=== PATIENT | male | born 1990 | race Hispanic/Latino ===

== ENCOUNTER 2022-10-04 15:52 | Emergency (ER) | payer OTHER ==
[2022-10-04] MEDS ORDERED: ACETAMINOPHEN 500 MG TAB ONE (16:14)
[2022-10-04] MEDS ORDERED: HYDROCODONE/APAP 7.5/325 MG TAB ONE (16:15)
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
[2022-10-04] MEDS ORDERED: LIDOCAINE 1% MPF 5 ML VIAL ONE (17:02)
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
[2022-10-04 19:35] VITALS: TEMP 98.2
[2022-10-04 19:37] VITALS: BP 131/59; O2SAT 100
== END 2022-10-04 19:28 | disposition home or self-care (01) ==
LOC: ER 15:52
PROC: 0JQ10ZZ Repair Face Subcutaneous Tissue and Fascia, Open Approach (ICD-10-PCS; principal; 2022-10-04)
DX: S01.81XA Laceration without foreign body of other part of head, initial encounter (principal); Y04.2XXA Assault by strike against or bumped into by another person, initial encounter; Y93.9 Activity, unspecified; Y92.9 Unspecified place or not applicable
CPT/HCPCS: 70450; 72125; 70486; 76377; 99284; 12011; J2001